=== PATIENT | male | born 1960 ===

== ENCOUNTER 2021-05-28 05:48 | Day surgery (SDC) | payer OTHER ==
[~2021-05-28 05:48] MED LIST: ATACAND16 MG PO; CANDESARTAN PO; CVS DAILY MULT1 EAC2 PO; OMEGA 3 1,0001 EACH PO
[2021-05-28] MEDS ORDERED: ULTRACET PO (08:41)
[2021-05-28] MEDS ORDERED: SURFAK240 M1 PO (08:42)
== END 2021-05-28 14:45 | disposition home or self-care (01) ==
LOC: CIR.AMB 05:48
PROVIDERS: ATTEND Surgery
DX: K42.9 Umbilical hernia without obstruction or gangrene (principal); Z20.822 Contact with and (suspected) exposure to COVID-19